=== PATIENT | male | born 1965 | race Caucasian/White ===

== ENCOUNTER 2020-02-12 19:13 | Emergency (ER) | payer BC, SELFPAY ==
--- NOTE | 2020-02-12 20:04 | RAD REPORT ---
EXAM DESCRIPTION: CT - CTHCSPWOC - 02/12/2020 7:46 pm CLINICAL HISTORY: Trauma, head and neck injury. SMASH INJURY COMPARISON: No comparisons TECHNIQUE: Axial 5 mm thick images of the head were obtained. Axial 2 mm thick images of the cervical spine were obtained with sagittal and coronal reconstruction images generated and reviewed. All CT scans are performed using dose optimization technique as appropriate and may include automated exposure control or mA/KV adjustment according to patient size. FINDINGS: CT HEAD WITHOUT CONTRAST: No acute hemorrhage, hydrocephalus or extra-axial collection is identified.No areas of brain edema or midline shift. The paranasal sinuses and mastoids are clear.The calvarium is intact. CT CERVICAL SPINE WITHOUT CONTRAST: No fracture or subluxation.No prevertebral soft tissues swelling is identified. IMPRESSION: No acute intracranial or cervical spine findings.
[2020-02-12 20:15] LABS: Absolute Lymphocytes (CBC) 1.8 K/uL (0.7-4.9); Basophils % 0.5 % (0-1.3); Hematocrit 45.6 % (39.6-49.0); Lymphocytes % 23.9 % (15.3-44.8); MPV 7.8 fL (7.6-11.3)
[2020-02-12] MEDS ORDERED: FENTANYL CITR 100 MCG/2 ML ONE ×2 (20:16→20:48)
[2020-02-12] MEDS ORDERED: KETOROLAC 30 MG/ML INJ ONE (20:49)
--- NOTE | 2020-02-12 21:08 | RAD REPORT ---
EXAM DESCRIPTION: RAD - Shoulder Right 2 View - 02/12/2020 8:59 pm CLINICAL HISTORY: Pain;Smash injury COMPARISON: No comparisons FINDINGS: Cortical defect is seen along the superior margin of the humeral head. This could be chron ic however acute injury is not excluded. Mild degenerative AC joint changes. Consider CT of the shoul gabbi hardware assessment if clinically indicated.
[2020-02-12] MEDS ORDERED: MEPERIDINE HCL 50 MG/ML ONE ×2 (21:59→23:23)
--- NOTE | 2020-02-12 23:05 | EDPHYS ---
Physician Documentation [facility] Name: Lucía Robison Age: 54 yrs Sex: Male : 1965 Arrival Date: 02/12/2020 Time: 19:26 Bed 16 Private MD: ED Physician Luis Crews HPI: 02/11 19:39 This 54 yrs old Male presents to ER via EMS with complaints of Fall Injury. snw 19:39 Details of fall: The patient fell from an upright position, slipped and fell to snw occiput, unknown LOC. Right shoulder pain. Dizziness, nausea. Onset: The symptoms/episode began/occurred suddenly, just prior to arrival. Severity of symptoms: At their worst the symptoms were moderate. It is unknown whether or not the patient has had similar symptoms in the past. It is unknown whether or not the patient has recently seen a physician. no vomiting, GCS 15. Historical: - Allergies: 19:33 Codeine; ca1 19:33 Morphine; ca1 19:33 Versed; ca1 19:33 Phenergan; ca1 19:33 Ativan; ca1 - Home Meds: 19:33 None [Active]; ca1 - PMHx: 19:33 PE; ca1 - PSHx: 19:33 Back Surgery; shoulder surgery; Tonsillectomy; Appendectomy; ca1 - Immunization history:: Adult Immunizations up to date, Last tetanus immunization: up to date Flu vaccine is up to date. - Social history:: Smoking status: Patient reports use of chewing tobacco. - Immunization history: Last tetanus immunization: - up to date. ROS: 19:37 Constitutional: Negative for fever, chills, and weight loss, Eyes: Negative for injury, snw pain, redness, and discharge, ENT: Negative for injury, pain, and discharge, Neck: Negative for injury, pain, and swelling, Cardiovascular: Negative for chest pain, palpitations, and edema, Respiratory: Negative for shortness of breath, cough, wheezing, and pleuritic chest pain, Abdomen/GI: Negative for abdominal pain, nausea, vomiting, diarrhea, and constipation, Back: Negative for injury and pain, : Negative for injury, bleeding, discharge, and swelling, Skin: Negative for injury, rash, and discoloration, Psych: Negative for depression, anxiety, suicide ideation, homicidal ideation, and hallucinations, Allergy/Immunology: Negative for hives, rash, and allergies. 19:37 MS/extremity: Positive for injury or acute deformity, decreased range of motion, pain, tenderness, of the posterior aspect of right shoulder and anterior aspect of right shoulder. 19:37 Neuro: Positive for dizziness, loss of consciousness, of the scalp. Exam: 19:35 Constitutional: This is a well developed, well nourished patient who is awake, alert, snw and in no acute distress. Head/Face: Normocephalic, traumatic contusion to occiput. Eyes: Pupils equal round and reactive to light, extra-ocular motions intact. Lids and lashes normal. Conjunctiva and sclera are non-icteric and not injected. Cornea within normal limits. Periorbital areas with no swelling, redness, or edema. ENT: Nares patent. No nasal discharge, no septal abnormalities noted. Tympanic membranes are normal and external auditory canals are clear. Oropharynx with no redness, swelling, or masses, exudates, or evidence of obstruction, uvula midline. Mucous membranes moist. Neck: Trachea midline, no thyromegaly or masses palpated, and no cervical lymphadenopathy. Supple, full range of motion without nuchal rigidity, or vertebral point tenderness. No Meningismus. Chest/axilla: Normal chest wall appearance and motion. Nontender with no deformity. No lesions are appreciated. Cardiovascular: Tachycardic rate and rhythm with a normal S1 and S2. No gallops, murmurs, or rubs. Normal PMI, no JVD. No pulse deficits. Respiratory: Lungs have equal breath sounds bilaterally, clear to auscultation and percussion. No rales, rhonchi or wheezes noted. No increased work of breathing, no retractions or nasal flaring. Abdomen/GI: Soft, non-tender, with normal bowel sounds. No distension or tympany. No guarding or rebound. No evidence of tenderness throughout. Back: No spinal tenderness. No costovertebral tenderness. Full range of motion. Skin: Warm, dry with normal turgor. Normal color with no rashes, no lesions, and no evidence of cellulitis. MS/ Extremity: Pulses equal, no cyanosis. Neurovascular intact. limited right shoulder range of motion secondary to pain, No deformity noted. Peripheral pulses present and +2 Neuro: Awake and alert, GCS 15, oriented to person, place, time, and situation. Cranial nerves II-XII grossly intact. Motor strength 5/5 in all extremities. Sensory grossly intact. Cerebellar exam normal. Normal gait. Psych: Awake, alert, with orientation to person, place and time. Behavior, mood, and affect are within normal limits. Vital Signs: 19:26 BP 135 / 88; Pulse 100; Resp 17 S; Temp 98.1(O); Pulse Ox 99% on R/A; Weight 90.72 kg ca1 (R); Height 5 ft. 8 in. (172.72 cm) (R); Pain 8/10; 20:14 BP 138 / 86; Pulse 105; Resp 16 S; Pulse Ox 97% on R/A; ca1 20:45 BP 131 / 80; Pulse 101; Resp 16 S; Pulse Ox 98% on R/A; ca1 21:48 BP 130 / 79; Pulse 98; Resp 16 S; Pulse Ox 98% on R/A; ca1 22:36 Pulse 89; Resp 18 S; Pulse Ox 96% on R/A; jd3 23:17 BP 128 / 76; Pulse 94; Resp 18 S; Pulse Ox 97% on R/A; jd3 19:26 Body Mass Index 30.41 (90.72 kg, 172.72 cm) ca1 Edcouch Coma Score: 19:28 Eye Response: spontaneous(4). Verbal Response: oriented(5). Motor Response: obeys ca1 commands(6). Total: 15. 20:14 Eye Response: spontaneous(4). Verbal Response: oriented(5). Motor Response: obeys ca1 commands(6). Total: 15. Trauma Score (Adult): 19:28 Eye Response: spontaneous(1); Verbal Response: oriented(1); Motor Response: obeys ca1 commands(2); Systolic BP: > 89 mm Hg(4); Respiratory Rate: 10 to 29 per min(4); Edcouch Score: 15; Trauma Score: 12 20:14 Eye Response: spontaneous(1); Verbal Response: oriented(1); Motor Response: obeys ca1 commands(2); Systolic BP: > 89 mm Hg(4); Respiratory Rate: 10 to 29 per min(4); Jana Score: 15; Trauma Score: 12 MDM: 19:27 Patient medically screened. snw 23:05 Data reviewed: vital signs, nurses notes. Data interpreted: Pulse oximetry: on room air snw is 96 %. Interpretation: acceptable. Counseling: I had a detailed discussion with the patient and/or guardian regarding: the historical points, exam findings, and any diagnostic results supporting the discharge/admit diagnosis, radiology results, the need for outpatient follow up, to return to the emergency department if symptoms worsen or persist or if there are any questions or concerns that arise at home. Special discussion: Based on the patient's history, exam and DX evaluation, there is no indication for emergent intervention or inpatient TX. It is understood by the patient/guardian that if the SXs persist or worsen they need to return immediately for re-evaluation. Based on the history and exam findings, there is no indication for further emergent testing or inpatient evaluation. I discussed with the patient/guardian the need to see the orthopedic surgeon for further evaluation of the symptoms. I discussed with the patient/guardian the need to see the primary care provider for further evaluation of the symptoms. 02/11 19:28 Order name: CBC with Diff; Complete Time: 20:41 snw 02/11 19:28 Order name: Chem 7; Complete Time: 20:26 snw 02/11 19:28 Order name: CT Head C Spine; Complete Time: 20:12 snw 02/11 19:28 Order name: Shoulder Right (2 View) XRAY; Complete Time: 21:10 snw 02/11 21:20 Order name: Shoulder Right Wo Cont EDMS 02/11 19:28 Order name: PIV; Complete Time: 20:05 snw 02/11 20:12 Order name: Wound Care; Complete Time: 20:40 snw 02/11 20:27 Order name: Sling; Complete Time: 20:40 snw Administered Medications: 19:44 CANCELLED (allergic): Phenergan 12.5 mg IVP once snw 20:05 Drug: fentaNYL (PF) 50 mcg {Note: rass 0.} Route: IVP; Site: left antecubital; ca1 20:32 Follow up: Response: No adverse reaction; Pain is unchanged, physician notified; RASS: ca1 Alert and Calm (0) 20:33 Drug: TORadol - Ketorolac 15 mg Route: IVP; Site: left antecubital; ca1 21:48 Follow up: Response: No adverse reaction ca1 20:35 Drug: fentaNYL (PF) 50 mcg {Note: rass 0.} Route: IVP; Site: left antecubital; ca1 21:00 Follow up: Response: No adverse reaction; Pain is decreased; RASS: Alert and Calm (0) ca1 21:47 Drug: Demerol 50 mg {Note: rass 0.} Route: IVP; Site: left antecubital; ca1 23:15 Follow up: Response: No adverse reaction; RASS: Alert and Calm (0) jd3 23:10 Drug: Demerol 50 mg Route: IM; Site: left deltoid; jd3 23:28 Follow up: Response: No adverse reaction; RASS: Alert and Calm (0) jd3 Disposition: 02/12 07:12 Co-signature as Attending Physician, Luis Crews MD I agree with the assessment and kdr plan of care. Disposition: 02/12/20 23:04 Discharged to Home. Impression: Fall on same level from slipping, tripping and stumbling, Unspecified injury of head, Pain in right shoulder. - Condition is Stable. - Discharge Instructions: Joint Pain, Fall Prevention in the Home, Musculoskeletal Pain, Shoulder Pain, Shoulder Range of Motion Exercises, Head Injury, Adult, [id number], Cryotherapy, Heat Therapy. - Prescriptions for Diclofenac Sodium 75 mg Oral Tablet Sustained Release - take 1 tablet by ORAL route 2 times per day; 30 tablet. orphenadrine citrate 100 mg Oral Tablet Sustained Release - take 1 tablet by ORAL route 2 times per day As needed; 20 tablet. - Work release form, Medication Reconciliation Form, Thank You Letter, Antibiotic Education, Prescription Opioid Use form. - Follow up: Emergency Department; When: As needed; Reason: Worsening of condition. Follow up: Private Physician; When: 2 - 3 days; Reason: Recheck today's complaints, Continuance of care, Re-evaluation by your physician. Signatures: Dispatcher [employer] EDMS Luis Crews MD MD kdr Waters, Shelly, FNP-C FNP-Monster Nicholas RN RN jd3 Bridget Ricks RN RN ca1 Corrections: (The following items were deleted from the chart) 02/11 19:44 19:28 Phenergan 12.5 mg IVP once ordered. snw snw 21:20 21:18 CT RIGHT SHOULDER W/O CONTRAST ordered. EDIA EDMS 23:28 23:04 02/12/2020 23:04 Discharged to Home. Impression: Fall on same level from jd3 slipping, tripping and stumbling; Unspecified injury of head; Pain in right shoulder. Condition is Stable. Discharge Instructions: Joint Pain, Fall Prevention in the Home, Musculoskeletal Pain, Shoulder Pain, Shoulder Range of Motion Exercises, Head Injury, Adult, [id number], Cryotherapy, Heat Therapy. Prescriptions for Diclofenac Sodium 75 mg Oral Tablet Sustained Release - take 1 tablet by ORAL route 2 times per day; 30 tablet, orphenadrine citrate 100 mg Oral Tablet Sustained Release - take 1 tablet by ORAL route 2 times per day As needed; 20 tablet. and Forms are Work release form, Medication Reconciliation Form, Thank You Letter, Antibiotic Education, Prescription Opioid Use. Follow up: Emergency Department; When: As needed; Reason: Worsening of condition. Follow up: Private Physician; When: 2 - 3 days; Reason: Recheck today's complaints, Continuance of care, Re-evaluation by your physician. snw
--- NOTE | 2020-02-12 23:05 | ER ---
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 +LOC, c/o head pain, neck pain, R shoulder pain. Reports R shoulder injury x 3, states, "I felt my shoulder popped out and popped back in". Pt not on blood thinners. Coronavirus screen: Client denies travel out of the [place] in the last 14 days. At this time, the client does not indicate any symptoms associated with coronavirus-19. Ebola Screen: Patient negative for fever greater than or equal to 101.5 degrees Fahrenheit, and additional compatible Ebola Virus Disease symptoms Patient denies exposure to infectious person. Patient denies travel to an Ebola-affected area in the 21 days before illness onset. No symptoms or risks identified at this time. Initial Sepsis Screen: Does the patient meet any 2 criteria? No. Patient's initial sepsis screen is negative. Does the patient have a suspected source of infection? No. Patient's initial sepsis screen is negative. Risk Assessment: Do you want to hurt yourself or someone else? Patient reports no desire to harm self or others. Onset of symptoms was February 12, 2020. 19:26 Method Of Arrival: EMS: [facility] ca1 19:26 Acuity: CONCEPCIÓN 2 ca1 19:28 Care prior to arrival: None. Mechanism of Injury: Fall from standing position. Trauma ca1 event details: Injury occurred in the [facility], Injury occurred: at home. Injury occurred: February 12, 2020. Triage Assessment: 19:33 General: Appears in no apparent distress. uncomfortable, Behavior is calm, cooperative, ca1 appropriate for age. Pain: Complains of pain in scalp, anterior aspect of right shoulder and posterior aspect of right shoulder Pain currently is 8 out of 10 on a pain scale. EENT: No signs and/or symptoms were reported regarding the EENT system. Neuro: Level of Consciousness is awake, alert, obeys commands, Oriented to person, place, time, situation. Cardiovascular: Heart tones S1 S2 present Capillary refill < 3 seconds Patient's skin is warm and dry. Rhythm is regular. Respiratory: Airway is patent Respiratory effort is even, unlabored, Respiratory pattern is regular, symmetrical, Breath sounds are clear bilaterally. GI: Abdomen is round non-distended, Bowel sounds present X 4 quads. Abd is soft and non tender X 4 quads. : No signs and/or symptoms were reported regarding the genitourinary system. Derm: Skin is intact, is healthy with good turgor, Skin is pink, warm \\T\\ dry. Musculoskeletal: Circulation, motion, and sensation intact. Capillary refill < 3 seconds. Injury Description: Laceration sustained to scalp was sustained less than 30 minutes ago. a small amount of bleeding noted at this time. Trauma Activation: Alert Physician: ED Physician; Name: ; Notified At: ; Arrived At: Physician: General Surgeon; Name: ; Notified At: ; Arrived At: Physician: Radiology; Name: ; Notified At: ; Arrived At: Physician: Respiratory; Name: ; Notified At: ; Arrived At: Physician: Lab; Name: ; Notified At: ; Arrived At: Historical: - Allergies: 19:33 Codeine; ca1 19:33 Morphine; ca1 19:33 Versed; ca1 19:33 Phenergan; ca1 19:33 Ativan; ca1 - Home Meds: 19:33 None [Active]; ca1 - PMHx: 19:33 PE; ca1 - PSHx: 19:33 Back Surgery; shoulder surgery; Tonsillectomy; Appendectomy; ca1 - Immunization history:: Adult Immunizations up to date, Last tetanus immunization: up to date Flu vaccine is up to date. - Social history:: Smoking status: Patient reports use of chewing tobacco. - Immunization history: Last tetanus immunization: - up to date. Screenin:28 Abuse screen: Denies threats or abuse. Denies injuries from another. Tuberculosis ca1 screening: No symptoms or risk factors identified. 19:38 Nutritional screening: No deficits noted. Fall Risk Fall in past 12 months (25 points). ca1 Primary Survey: 19:28 NO uncontrolled hemorrhage observed. A: The patient is alert. Breathing/Chest: ca1 Respiratory pattern: regular, Respiratory effort: spontaneous, unlabored, Breath sounds: clear, bilaterally. Chest inspection: symmetrical rise and fall of the chest. Circulation: Heart tones present. Pulses: palpable bilateral radial, brachial, femoral, popliteal, posterior tibial and and dorsalis pedis arteries.. Skin color: pink, Skin temperature: warm, dry. Disability Alert. Exposure/Environment: All clothing and personal items were removed. Forensic evidence collection is not deemed to be indicated at this time. Items placed in patient belonging bag. There is no evidence of uncontrolled external bleeding. Obvious injury(ies) are noted at this time: Lac on back of head A warming method has been applied: A warm blanket has been provided to the patient. 20:13 Reassessment Airway Airway Patent Breathing/Chest Respiratory pattern Regular ca1 Respiratory effort Spontaneous Unlabored Chest inspection Symmetrical Circulation Heart tones Present Pulses Palpable Color [place] Temperature Warm Dry Disability Alert. Assessment: 19:38 Reassessment: see triage notes. ca1 20:14 Reassessment: Patient appears in no apparent distress at this time. Patient and/or ca1 family updated on plan of care and expected duration. Pain level reassessed. Patient is alert, oriented x 3, equal unlabored respirations, skin warm/dry/pink. 20:45 Reassessment: Patient appears in no apparent distress at this time. Patient and/or ca1 family updated on plan of care and expected duration. Pain level reassessed. Patient is alert, oriented x 3, equal unlabored respirations, skin warm/dry/pink. 21:48 Reassessment: Patient appears in no apparent distress at this time. Patient and/or ca1 family updated on plan of care and expected duration. Pain level reassessed. Patient is alert, oriented x 3, equal unlabored respirations, skin warm/dry/pink. 22:36 Reassessment: Patient appears in no apparent distress at this time. No changes from jd3 previously documented assessment. Patient and/or family updated on plan of care and expected duration. Pain level reassessed. Patient is alert, oriented x 3, equal unlabored respirations, skin warm/dry/pink. 23:15 Reassessment: Patient appears in no apparent distress at this time. Patient and/or jd3 family updated on plan of care and expected duration. Pain level reassessed. Patient is alert, oriented x 3, equal unlabored respirations, skin warm/dry/pink. Patient states feeling better. Vital Signs: 19:26 BP 135 / 88; Pulse 100; Resp 17 S; Temp 98.1(O); Pulse Ox 99% on R/A; Weight 90.72 kg ca1 (R); Height 5 ft. 8 in. (172.72 cm) (R); Pain 8/10; 20:14 BP 138 / 86; Pulse 105; Resp 16 S; Pulse Ox 97% on R/A; ca1 20:45 BP 131 / 80; Pulse 101; Resp 16 S; Pulse Ox 98% on R/A; ca1 21:48 BP 130 / 79; Pulse 98; Resp 16 S; Pulse Ox 98% on R/A; ca1 22:36 Pulse 89; Resp 18 S; Pulse Ox 96% on R/A; jd3 23:17 BP 128 / 76; Pulse 94; Resp 18 S; Pulse Ox 97% on R/A; jd3 19:26 Body Mass Index 30.41 (90.72 kg, 172.72 cm) ca1 Jana Coma Score: 19:28 Eye Response: spontaneous(4). Verbal Response: oriented(5). Motor Response: obeys ca1 commands(6). Total: 15. 20:14 Eye Response: spontaneous(4). Verbal Response: oriented(5). Motor Response: obeys ca1 commands(6). Total: 15. Trauma Score (Adult): 19:28 Eye Response: spontaneous(1); Verbal Response: oriented(1); Motor Response: obeys ca1 commands(2); Systolic BP: > 89 mm Hg(4); Respiratory Rate: 10 to 29 per min(4); Geneva Score: 15; Trauma Score: 12 20:14 Eye Response: spontaneous(1); Verbal Response: oriented(1); Motor Response: obeys ca1 commands(2); Systolic BP: > 89 mm Hg(4); Respiratory Rate: 10 to 29 per min(4); Geneva Score: 15; Trauma Score: 12 ED Course: 19:26 Patient arrived in ED. am2 19:27 [facility]ila Fagan [facility]C [facility] snw 19:27 Luis Crews MD is Attending Physician. snw 19:27 Bridget Ricks RN is Primary Nurse. ca1 19:28 Patient has correct armband on for positive identification. Bed in low position. Call ca1 light in reach. Side rails up X2. 19:28 Patient maintains SpO2 saturation greater than 95% on room air. ca1 19:31 Triage completed. ca1 19:33 Arm band placed on right wrist. ca1 19:38 Pulse ox on. NIBP on. Warm blanket given. ca1 19:39 Thermoregulation: warm blanket given to patient. ca1 19:46 CT Head C Spine In Process Unspecified. EDMS 20:00 No provider procedures requiring assistance completed. Initial lab(s) drawn, by me, ca1 sent to lab. Inserted saline lock: 20 gauge in left antecubital area, using aseptic technique. Blood collected. 20:40 Shoulder immobilizer applied on right shoulder. ca1 21:00 Shoulder Right (2 View) XRAY In Process Unspecified. EDMS 22:03 Shoulder Right Wo Cont In Process Unspecified. EDMS 23:17 IV discontinued, intact, bleeding controlled, No redness/swelling at site. Pressure jd3 dressing applied. Administered Medications: 19:44 CANCELLED (allergic): Phenergan 12.5 mg IVP once snw 20:05 Drug: fentaNYL (PF) 50 mcg {Note: rass 0.} Route: IVP; Site: left antecubital; ca1 20:32 Follow up: Response: No adverse reaction; Pain is unchanged, physician notified; RASS: ca1 Alert and Calm (0) 20:33 Drug: TORadol - Ketorolac 15 mg Route: IVP; Site: left antecubital; ca1 21:48 Follow up: Response: No adverse reaction ca1 20:35 Drug: fentaNYL (PF) 50 mcg {Note: rass 0.} Route: IVP; Site: left antecubital; ca1 21:00 Follow up: Response: No adverse reaction; Pain is decreased; RASS: Alert and Calm (0) ca1 21:47 Drug: Demerol 50 mg {Note: rass 0.} Route: IVP; Site: left antecubital; ca1 23:15 Follow up: Response: No adverse reaction; RASS: Alert and Calm (0) jd3 23:10 Drug: Demerol 50 mg Route: IM; Site: left deltoid; jd3 23:28 Follow up: Response: No adverse reaction; RASS: Alert and Calm (0) jd3 Intake: 19:28 PO: 0ml; Total: 0ml. ca1 Outcome: 23:04 Discharge ordered by . snw 23:16 Discharged to home ambulatory, with family. pepe 23:16 Condition: stable 23:16 Discharge instructions given to patient, family, Instructed on discharge instructions, follow up and referral plans. medication usage, Demonstrated understanding of instructions, follow-up care, medications, Prescriptions given X 2. 23:16 Patient's length of stay in the Emergency Department was greater than 2 hours. waiting on resultsPatient's length of stay extended due to 23:28 Patient left the ED. pepe Signatures: Dispatcher [employer] EDMS Tila Fagan, CAROL-C EMERY WHEEL MOLDER-Gardenia Chaparro Jonathon RN RN jd3 Bridget Ricks RN RN ca1
[2020-02-13 03:14] VITALS: TEMP 98.1
[2020-02-13 03:21] VITALS: BP 128/76; O2SAT 97
--- NOTE | 2020-02-13 09:46 | RAD REPORT ---
EXAM DESCRIPTION: CT SHOULDER WITHOUT IV CONTRAST CLINICAL HISTORY: Fall Injury TECHNIQUE: Contiguous axial CT images obtained through the right shoulder without IV contrast. Coron al and sagittal reformatted images were provided. This exam was performed according to our departmental dose-optimization program, which includes autom ated exposure control, adjustment of the mA and/or kV according to patient size and/or use of iterati ve reconstruction technique. COMPARISON: None available for comparison FINDINGS: Bones: No acute fracture. Joints: Mild degenerative changes at the glenohumeral and acromioclavicular articulations. Soft tissues: Focal calcific density along the superior lateral aspect of the humeral head suggestive of calcific tendinosis. IMPRESSION: No acute injury. Electronically signed by: Ethan Omer MD 02/12/2020 10:18 PM [employer] Due to temporary technical issues with the PACS/Fluency reporting system, reports are being signed by the in house radiologist without review as a courtesy to ensure prompt reporting. The interpreting r adiologist is fully responsible for the content of the report.
== END 2020-02-12 23:28 | disposition home or self-care (01) ==
LOC: ER 19:13
DX: S09.90XA Unspecified injury of head, initial encounter (principal); W01.0XXA Fall on same level from slipping, tripping and stumbling without subsequent striking against object, initial encounter; Y93.01 Activity, walking, marching and hiking; Y92.9 Unspecified place or not applicable; Z88.5 Allergy status to narcotic agent; Z88.8 Allergy status to other drugs, medicaments and biological substances; F17.220 Nicotine dependence, chewing tobacco, uncomplicated
CPT/HCPCS: 36415; 70450; 72125; 73200; 80048; 85025; 96372; 96374; 96375; 99285; G0390; J2175; J3010